=== PATIENT | female | born 1970 | race Caucasian/White ===

== ENCOUNTER 2023-08-02 13:29 | Emergency (ER) | payer MEDICARE, SELFPAY ==
--- NOTE | ~2023-08-02 | CT_ITS ---
EXAMINATION: CT brain wo con DATE: 08/02/2023 17:27 INDICATION: Head injury from fall. Forehead hematoma. TECHNIQUE: Computed tomography (CT) of the head was performed without intravenous contrast. The mA wa s adjusted according to patient size. Iterative reconstruction technique was employed. Exam dose: 60 5.33 mGy-cm total exam DLP. COMPARISON: None FINDINGS: No intracranial mass lesion or hemorrhage or cerebrovascular accident is detected. No midli ne shift or mass effect. Normal ventricular size. Bilateral carotid siphon internal carotid artery calcifications are noted. Prominent mucoperiosteal thickening of the right maxillary sinus. The paranasal sinuses and mastoid a ir cells are otherwise normally developed and aerated. Mild midline frontal hematoma. Bilateral nasal plate fractures. No skull fracture or to or contrecoup intracranial injury is identified. IMPRESSION: Bilateral nasal plate fracture Mild midline frontal cephalhematoma; no skull fracture or acute intracranial abnormality is identifie d. Reviewed, dictated and finalized at [facility]. Reviewed, dictated and finalized at [facility]. IMPRESSION: Bilateral nasal plate fracture Mild midline frontal cephalhematoma; no skull fracture or acute intracranial ab normality is identified.
--- NOTE | ~2023-08-02 | CT_ITS ---
EXAMINATION: CT facial & cervical spine wo DATE: 08/02/2023 17:27 INDICATION: Facial and neck injuries. Forehead hematoma. TECHNIQUE: Computed tomography (CT) of the facial bones and maxillofacial region and cervical spine w as performed without intravenous contrast. Automated exposure control and iterative reconstruction te chnique were employed. Exam dose: 353.15 mGy-cm total exam DLP. COMPARISON: None. FINDINGS: Mild midline frontal cephalohematoma. There are bilateral nasal plate fractures. The frontozygomatic sutures, orbital rims and mane, zygomatic arches and maxillary bones and pterygo id plates are intact. No mandibular fracture or dislocation. 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 Prominent in comparison thickening of the right maxillary sinus and right ostiomeatal unit is noted. Slight anterolisthesis and mild degenerative disc disease at C4-5 and C5-6. There is slight anterior subluxation at C6-7. No cervical spine fracture or dislocation or locked facet. No prevertebral soft tissue swelling. Upper thoracic spinal pedicle screws and rods beginning at T2 are noted. IMPRESSION: Bilateral nasal plate fractures Prominent mucoperiosteal thickening of the right maxillary sinus, right infundibulum. Mild degenerative disc disease and anterior subluxation of C4-5 and C5-6, slightly anterior subluxati on C6-C7 No fracture or dislocation or locked facet Thoracic spinal rods and pedicle screws Reviewed, dictated and finalized at [facility]. Reviewed, dictated and finalized at [facility]. IMPRESSION: Bilateral nasal plate fractures Prominent mucoperiosteal thickening of the right maxillary sinus, right infundi bulum. Mild degenerative disc disease and anterior subluxation of C4-5 and C5-6, sligh tly anterior subluxation C6-C7 No fracture or dislocation or locked facet Thoracic spinal rods and pedicle screws
[2023-08-02 13:38] VITALS: BP 146/77; PULSE 107; RESP 18; TEMP 36.9; O2SAT 99
--- NOTE | 2023-08-02 17:09 | ED.FALL ---
HPI - Fall General Chief Complaint: Fall Stated Complaint: TRIP AND FALL. HIT FACE Time Seen by Provider: 08/02/23 16:11 History of Present Illness HPI Narrative: 53-year-old female present to the emerged department for evaluation after having a ground-level fall. Patient reports he does have prior history of scoliosis surgery and did have a previous spinal cord injury. Patient states that she has not fallen recently. Patient states that her legs gave out and she fell forward and struck her face. Patient states the fall happened so quickly she was not able to reach out and protect her face. Patient denies having any loss of consciousness or lightheaded dizziness as a cause of the fall and denies any loss of consciousness as a result of the fall. Related Data Home Medications Medication Instructions Recorded Confirmed baclofen 20 mg tablet 20 mg PO TID 08/04/23 08/04/23 esomeprazole magnesium 20 mg 20 mg PO DAILY 08/04/23 08/04/23 capsule,delayed release (Nexium) fluticasone propionate 50 1 spray intranasal DAILY 08/04/23 08/04/23 mcg/actuation nasal spray,suspension (Flonase Allergy Relief) gabapentin 300 mg capsule 300 mg PO TID 08/04/23 08/04/23 levothyroxine 25 mcg capsule 25 mcg PO DAILY 08/04/23 08/04/23 Allergies Allergy/AdvReac Type Severity Reaction Status Date / Time latex Allergy Difficulty Verified 08/04/23 09:35 Breathing morphine Allergy Unknown Verified 08/04/23 09:35 Sulfa (Sulfonamide Allergy Swelling Verified 08/04/23 09:35 Antibiotics) ANTIFUNGAL Allergy Swelling Uncoded 08/04/23 09:35 of Lip/Tongue/Throat Review of Systems Review of Systems: All systems reviewed & are unremarkable except as noted in HPI and below PMFSH Past Medical History Medical History (Updated 08/04/23 @ 10:05 by Dayne Johnson MD) FH: cholecystectomy Spinal fusion failure Surgical History Surgical History (Updated 08/04/23 @ 09:41 by Tania Teixeira CMA) H/O hernia repair H/O: hysterectomy Family History Family History (Updated 08/04/23 @ 09:42 by Tania Teixeira CMA) Father Thyroid cancer Diabetes mellitus Mother Breast cancer Social History Social History (Updated 08/04/23 @ 09:44 by Tania Teixeira CMA) Smoking status: Never smoker Alcohol intake: never Substance use: never Substance use type: does not use Lack of Transportation: No Lack of Food: Never True Current Housing: I Have Housing Concerned About Future Housing: No Difficulty Paying Gas/Electric Bills: No Difficulty Paying for Meds: No Currently Unemployed: No Education: Bachelor's Degree Difficulty w/ Childcare or Family Care: No Exam Narrative: APPEARANCE: Well appearing, no pain, no distress, well-nourished. HEAD: normocephalic, facial contusion EYES: PERRLA/EOMI, conjunctivae clear. NOSE: Normal no drainage EARS:TMS clear with good light reflex. THROAT: Pharynx clear, no exudate. NECK: Supple. No adenopathy, no masses. RESPIRATORY: Airway patent, respirations nonlabored. Clear to auscultation bilaterally, no rales, rhonchi, wheezing. CARDIOVASCULAR: Regular rate and rhythm without murmurs rubs or gallops. ABDOMINAL: Soft, nontender, nondistended, normal bowel sounds MUSCULOSKELETAL: Moves all extremities. Strength/ROM intact, No edema, No calf tenderness. NEURO: Alert. Cranial nerves II through XII intact. Grossly intact SKIN: Warm, dry. Normal Color Course Course Emergency Course: 53-year-old female presented the ED for evaluation after having a ground-level fall and facial contusion. CTs were negative for acute findings. Patient family were updated on the results of the work-up. All question concerns were addressed and patient was well-appearing at time of discharge. Vital Signs Vital signs: Vital Signs Temperature 98.4 F 08/02/23 13:38 Pulse Rate 107 H 08/02/23 13:38 Respiratory Rate 18 08/02/23 13:38 Blood Pressure 146/77
[2023-08-02] MEDS: HYDROcodone/acetaminophen (*CRX) 5-325 MG TABLET 1 TAB PO (17:29)
== END 2023-08-02 18:25 | disposition home or self-care (01) ==
PROVIDERS: Emergency Provider Emergency Medicine; PCP Family Medicine
DX: S02.2XXA Fracture of nasal bones, initial encounter for closed fracture (principal); S00.83XA Contusion of other part of head, initial encounter; Z90.710 Acquired absence of both cervix and uterus; M50.321 Other cervical disc degeneration at C4-C5 level; W18.39XA Other fall on same level, initial encounter
CPT/HCPCS: 70450; 70486; 72125; 99284; A9270